=== PATIENT | male | born 1970 | race Caucasian/White ===

== ENCOUNTER 2023-07-20 17:20 | Emergency (ER) | payer OTHER, SELFPAY ==
[2023-07-20 17:23] VITALS: BP 128/90
[2023-07-20] MEDS: TYLENOL 1000 MG PO (18:29)
[2023-07-20] MEDS: TORADOL 30 MG IM (18:29)
[2023-07-20] MEDS: LIDOCAINE 4% PATCH 1 PATCH TOPICAL (18:30)
[2023-07-20] MEDS: VALIUM 5 MG PO (18:30)
--- NOTE | 2023-07-20 20:17 | ED.GENMED ---
History of Present Illness
General
Chief Complaint: Back Pain
Source: patient and spouse
Exam Limitations: none
Time Seen by Provider: 07/20/23 18:02
Nursing documentation reviewed up to this point in time: agreed with
Travel History
Have you had any contact with someone who has COVID-19?: No
Do you have any symptoms of coronavirus? Fever > 100 degrees, chills, cough, shortness of breath, sore throat, loss of taste or smell, muscle aches, or headache?: No
History of Present Illness
History of Present Illness:
53-year-old male past medical history of chronic back pain GERD presenting to the emergency department today with concerns of 3 days of low back pain with radiation down his right leg. Denies any changes in bowel or bladder function denies any
numbness or weakness. He was placed on Solu-Medrol a few days ago but has not been taking any pain meds
Past History
Past History
ED Past Medical History: Asthma (Exercise induced), GERD (hiatal hernia) and Other (L5 HNP, Hiatel hernia); Negative HTN, Hypercholesterolemia or NIDDM
ED Past Surgical History: None
Social History
Tobacco: Non-smoker
Alcohol: Occasional
Drug: None
Personal: Single
Living: alone
Employment: Employed
Family History
Family History: Negative Early CAD or Sudden
Review of Systems
Review of Systems
Allergies reviewed?: Yes
All Other Systems: ROS reviewed and negative except as documented in HPI and ROS
Phy Exam
Physical Exam
Physical Exam:
GENERAL: Alert , in no apparent distress
EYE: pupils equal and reactive
NECK: Supple, no significant adenopathy.
ENT: o/p clr, mmm.
CARDIAC: Regular rate and rhythm .
LUNGS: Clear breath sounds bilaterally, no acute respiratory distress, no wheezes/rales/rhonchi
ABDOMEN: Soft, without focal tenderness, no r/g, no cvat
NEUROLOGICAL: Alert and oriented, no focal neuro deficits 5-5 lower extremity strength normal sensation were palpated bilaterally
SKIN:warm and dry, skin intact.
MUSCULOSKELETAL: No edema, well perfused.
PSYCH: Normal and appropriate interaction.
Course
Orders/Labs/Results
Orders:
Orders
07/20/23 18:20
Acetaminophen [Tylenol] 1,000 mg PO NOW STA
Diazepam [Valium] 5 mg PO NOW STA
Ketorolac [Toradol] 30 mg IM NOW STA
Lumbar Spine, 2 or 3 View [CR Lumbar Spine 2 Or 3 Views] Urgent
Comment:
Reason For Exam: lbp
07/20/23 18:21
Lidocaine [Lidocaine 4% Patch] 1 patch TOPICAL ONCE ONE
Vital Signs
Initial and Last Documented VS:
Initial Vital Signs
Temp Pulse Resp BP Pulse Ox
97.9 F 76 16 128/90 97
07/20/23 17:23 07/20/23 17:23 07/20/23 17:23 07/20/23 17:23 07/20/23 17:23
Last Documented Vital Signs
Temp Pulse Resp BP Pulse Ox
97.9 F 76 16 128/90 97
07/20/23 17:23 07/20/23 17:23 07/20/23 17:23 07/20/23 17:23 07/20/23 17:23
MDM/Problems Addressed
MDM/Problems Addressed:
53-year-old male presenting to the emergency department concerns of low back pain no red flag symptoms no numbness weakness no changes in bowel or bladder function no reproducible symptoms of them with movement of the right leg. Patient was already
started on steroids was given a muscle relaxer as well as NSAID here with improvement of symptoms. X-ray without emergent findings patient advised to follow-up with the back doctor return precautions given.
*Critical Care Note
Total Time (30-74mins, 75-104mins- exclusive of procedures): Not Applicable
ED Attending Note
-
Portions of this chart may have been created with voice recognition software.� Occasional wrong word or��sound alike� substitutions may have occurred due to the inherent limitations of voice recognition software.
Discharge Plan
Departure
Patient Disposition: Home (Routine Discharge)
Date of Disposition: 07/20/23
Time of Disposition: 20:31
Patient with high blood pressure during this ER visit?: No
Condition: Good
Covid-19: Not Applicable
Discharge Problem:
Low back pain
Instructions: Low Back Pain (DC)
Prescriptions:
New
tizanidine [Zanaflex] 4 mg tablet
4 mg PO BID PRN (Reason: muscle spasticity) Qty: 7 0RF
ibuprofen 600 mg tablet
600 mg PO Q8H PRN (Reason: Pain) Qty: 14 0RF
acetaminophen 325 mg capsule
650 mg PO Q6H PRN (Reason: Pain) Qty: 20 0RF
No Action
ketorolac 10 MG tablet
10 mg PO Q8HPRN PRN (Reason: pain) Qty: 15 0RF
oxycodone-acetaminophen 5 MG/325 MG tablet
1 tab PO Q6HPRN PRN (Reason: pain) Qty: 20 0RF
sucralfate [Carafate] 100 mg/mL suspension
10 ml PO ACHS Qty: 400 0RF
Referrals:
Hernandez St MD [Active] - Follow up in 5-7 days
Jose Alejandro Gaytan DO [Family Provider] -
Activity Restrictions/Additional Instructions:
You came to the emergency department today with concerns of low back pain you an x-ray without emergent findings. Please follow closely with the back doctor and take the prescribed medications. Return to the emergency department for any worsening,
new or concerning symptoms.
Interventions
Interventions:
*Risk Screen - Suicide Last Done: 07/20/23 18:36
*General Assessment Last Done: 07/20/23 17:23
*Neglect/Abuse Screening Last Done: 07/20/23 18:36
ED- Fall Risk Assessment Last Done: 07/20/23 20:40
*ED COVID-19 Vaccine History Last Done: 07/20/23 17:23
*Nursing Disposition Last Done: 07/20/23 20:40
ED-Musculoskeletal Assessment Last Done: 07/20/23 18:36
Discharge Date and Time
Discharge Date/Time: 07/20/23 20:40
Print Language: HUNGARIAN
== END 2023-07-20 20:40 | disposition home or self-care (01) ==
LOC: EMR 17:20
PROVIDERS: EMERGENCY PHYSICIAN Emergency Medicine; FAMILY PHYSICIAN Family Medicine
DX: M54.50 Low back pain, unspecified (principal); K21.9 Gastro-esophageal reflux disease without esophagitis; J45.998 Other asthma; K44.9 Diaphragmatic hernia without obstruction or gangrene; G89.29 Other chronic pain; M51.26 Other intervertebral disc displacement, lumbar region; Z91.048 Other nonmedicinal substance allergy status
CPT/HCPCS: 99284; 96372; 72100

== ENCOUNTER 2023-07-21 07:41 | Emergency (ER) | payer OTHER, SELFPAY ==
[2023-07-21 07:43] VITALS: BP 128/98
--- NOTE | 2023-07-21 07:51 | ED.GENMED ---
History of Present Illness
General
Chief Complaint: Back Pain
Source: patient
Exam Limitations: none
Time Seen by Provider: 07/21/23 07:50
Nursing documentation reviewed up to this point in time: agreed with
Travel History
Have you had any contact with someone who has COVID-19?: No
Do you have any symptoms of coronavirus? Fever > 100 degrees, chills, cough, shortness of breath, sore throat, loss of taste or smell, muscle aches, or headache?: No
History of Present Illness
History of Present Illness:
53-year-old male with history of GERD presents maoning with mid low back pain radiating down right buttock, back of thigh and pain radiates to 'the balls of my toes and they're numb.' Was seen here yesterday for same, got relief of his pain with
treatment, his pharmacy was closed and hasn't picked up the Zanaflex yet. Took a Flexeril this a.m. with no relief. Denies loss of bowel or bladder control. Denies weakness in legs or saddle anesthesia. Denies fever.
Saw PCP Dr. Mcgill 3 days ago and is on day 3 of Medrol dose pack.
Past History
Past History
ED Past Medical History: Asthma (Exercise induced), GERD (hiatal hernia) and Other (L5 HNP, Hiatel hernia); Negative HTN, Hypercholesterolemia or NIDDM
ED Past Surgical History: None
Social History
Tobacco: Non-smoker
Alcohol: Occasional
Drug: None
Personal: Single
Living: alone
Employment: Employed
Family History
Family History: Negative Early CAD or Sudden
Review of Systems
Review of Systems
Allergies reviewed?: Yes
All Other Systems: ROS reviewed and negative except as documented in HPI and ROS
Constitutional: Denies fever
Respiratory: Denies trouble breathing
Cardiac: Denies chest pain
ABD/GI: Denies abdominal pain, nausea or vomiting
: Denies incontinence or difficulty voiding
Musculoskeletal: Reports back pain
Skin: Reports no symptoms
Neurological: Reports other (pain radiated right buttock, back of right thigh); Denies weakness or numbness
Phy Exam
Physical Exam
Physical Exam:
GENERAL: No acute distress. A&Ox3.
CONSTITUTIONAL: Afebrile.
EYES: clear, conjunctivae normal
Neck: Supple
ENMT: moist mucus membranes, Pharynx nl
RESPIRATORY: Regular respirations, nonlabored, lungs clear.
CARDIOVASCULAR: Regular rate and rhythm, no murmurs, no rubs.
GI: Soft, nontender, normal BS
MUSCULOSKELETAL: Moaning in pain with most comfortable position being standing at bedside and leaning slightly forward on the bed. Will reassess after pain medication
SKIN: Warm, dry, pink
PSYCH: Anxiousl mood and affect. Well kept, interactive and appropriate
NEUROLOGIC: Awake, alert and oriented. No focal neurological deficits
Course
Orders/Labs/Results
Orders:
Orders
07/21/23 08:04
Dexamethasone [Decadron] 10 mg PO NOW STA
07/21/23 08:05
Diazepam [Valium] 5 mg PO NOW STA
Ketorolac [Toradol] 30 mg IM NOW STA
07/21/23 10:10
HYDROmorphone [Dilaudid] 1 mg IM NOW STA
Vital Signs
Initial and Last Documented VS:
Initial Vital Signs
Temp Pulse Resp BP Pulse Ox
98.9 F 79 24 128/98 100
07/21/23 07:43 07/21/23 07:43 07/21/23 07:43 07/21/23 07:43 07/21/23 07:43
Last Documented Vital Signs
Temp Pulse Resp BP Pulse Ox
98.9 F 79 24 128/98 100
07/21/23 07:43 07/21/23 07:43 07/21/23 07:43 07/21/23 07:43 07/21/23 07:43
MDM/Problems Addressed
Differential Diagnosis Includes:
Low back strain, sciatica, ruptured disc, cauda equina
MDM/Problems Addressed:
53-year-old male with history of GERD presents maoning with mid low back pain radiating down right buttock, back of thigh and pain radiates to 'the balls of my toes and they're numb.' Was seen here yesterday for same, got relief of his pain with
treatment, his pharmacy was closed and hasn't picked up the Zanaflex yet. Took a Flexeril this a.m. with no relief. Denies loss of bowel or bladder control. Denies weakness in legs or saddle anesthesia. Denies fever.
Saw PCP Dr. Mcgill 3 days ago and is on day 3 of Medrol dose pack.
Afebrile, moaning in pain, comfortable position is standing leaning slightly forward on bed.
10:00 AM
Patient feeling better after medications but cannot get out of bed or ambulate without still significant 7/10 pain.
He tells me he has a prescription from his PCP for an MRI and it has been approved by his insurance but he could not get an appointment till next month.
He will call at this time [facility] to see if they can get him in sooner.
No cauda equina
10:40 AM
Patient feeling much better after IM Dilaudid, is able to get up out of bed and ambulate independently with less pain.
I had pt call his PCP, who sent the approval for MRI to [facility] and made an appointment for an MRI in 6 days.
Rx for Zanaflex #20 pills, Prednisone 50 mg daily x 4 days and Meloxicam (states it's worked for him in the past) sent to his pharmacy
*Critical Care Note
Total Time (30-74mins, 75-104mins- exclusive of procedures): Not Applicable
ED Attending Note
-
Portions of this chart may have been created with voice recognition software.� Occasional wrong word or��sound alike� substitutions may have occurred due to the inherent limitations of voice recognition software.
Discharge Plan
Departure
Patient Disposition: Home (Routine Discharge)
Date of Disposition: 07/21/23
Time of Disposition: 10:46
Patient with high blood pressure during this ER visit?: No
Condition: Fair
Discharge Problem:
Acute low back pain with sciatica
Instructions: Low Back Pain (DC), Sciatica (DC)
Prescriptions:
New
meloxicam 7.5 mg tablet
7.5 mg PO DAILY PRN (Reason: pain) Qty: 30 0RF
prednisone 50 mg tablet
50 mg PO DAILY Qty: 4 0RF
tizanidine [Zanaflex] 4 mg tablet
4 mg PO BID PRN (Reason: muscle spasticity) Qty: 20 0RF
No Action
ketorolac 10 MG tablet
10 mg PO Q8HPRN PRN (Reason: pain) Qty: 15 0RF
oxycodone-acetaminophen 5 MG/325 MG tablet
1 tab PO Q6HPRN PRN (Reason: pain) Qty: 20 0RF
sucralfate [Carafate] 100 mg/mL suspension
10 ml PO ACHS Qty: 400 0RF
tizanidine [Zanaflex] 4 mg tablet
4 mg PO BID PRN (Reason: muscle spasticity) Qty: 7 0RF
ibuprofen 600 mg tablet
600 mg PO Q8H PRN (Reason: Pain) Qty: 14 0RF
acetaminophen 325 mg capsule
650 mg PO Q6H PRN (Reason: Pain) Qty: 20 0RF
Referrals:
Jose Alejandro Gaytan, DO [Family Provider] - Call in 1-3 days for appt
Activity Restrictions/Additional Instructions:
As we discussed, call and make sooner appointment for your MRI
I sent prescription to your pharmacy for Meloxicam and Prednisone 50 mg daily for 4 days.
I also sent a prescription for Zanaflex 20 tablets to your pharmacy
Keep your appointment for an MRI next
Interventions
Interventions:
*Risk Screen - Suicide Last Done: 07/21/23 08:20
*General Assessment Last Done: 07/21/23 08:20
*Neglect/Abuse Screening Last Done: 07/21/23 08:20
*ED COVID-19 Vaccine History Last Done: 07/21/23 07:47
*Nursing Disposition Last Done: 07/21/23 11:01
ED-Musculoskeletal Assessment Last Done: 07/21/23 08:20
Discharge Date and Time
Discharge Date/Time: 07/21/23 11:02
Print Language: CHINESE
[2023-07-21] MEDS: VALIUM 5 MG PO (08:12)
[2023-07-21] MEDS: DECADRON 10 MG PO (08:13)
[2023-07-21] MEDS: TORADOL 30 MG IM (08:13)
[2023-07-21] MEDS: DILAUDID 1 MG IM (10:13)
== END 2023-07-21 11:02 | disposition home or self-care (01) ==
LOC: EMR 07:41
PROVIDERS: EMERGENCY PHYSICIAN Emergency Medicine; FAMILY PHYSICIAN Family Medicine
DX: M54.40 Lumbago with sciatica, unspecified side (principal); J45.909 Unspecified asthma, uncomplicated; K21.9 Gastro-esophageal reflux disease without esophagitis
CPT/HCPCS: 99283; 96372